=== PATIENT | female | born 1955 | race Caucasian/White ===

== ENCOUNTER 2017-03-31 09:56 | Emergency (ER) | payer BC, OTHER ==
[2017-03-31 10:03] VITALS: BP 146/76
[2017-03-31] MEDS ORDERED: LIDOCAINE 1% 2 ML VIAL SUBQ ONE (10:45)
[2017-03-31] MEDS ORDERED: LIDOCAINE 1% 2 ML VIAL ONE (10:53)
--- NOTE | 2017-03-31 11:22 | ED Physician Documentation ---
History of Present Illness - Stated complaint Stated Complaint: LUMP R GROIN-PX - Chief complaint Chief Complaint: Abd Pain - History obtained from History obtained from: Patient (Pt states that over the past 1-3 days she noticed a bump in her right groin. she has seen her PCM about this who thought that is was a lymph node. No fevers, no urinarx, no surrounding redness. did have some flu like sx recently. Nothing like this before.) Review of Systems Constitutional: reports: Fatigue. denies: Fever, Chills Cardiac: denies: Chest pain / pressure, Palpitations Respiratory: denies: Dyspnea, Cough GI: denies: Abdominal Pain, Nausea, Vomiting, Constipation, Diarrhea : denies: Dysuria, Frequency, Vaginal bleeding Skin: reports: Lesions (right grion bump). 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 - Present Medications Home Medications: Ambulatory Orders Medication Instructions Recorded Confirmed Lisinopril 7.5 mg PO DAILY 03/31/17 03/31/17 - Allergies Allergies/Adverse Reactions: Allergies Allergy/AdvReac Type Severity Reaction Status Date / Time No Known Drug Allergies Allergy Verified 03/31/17 10:02 - Social History Does the pt smoke?: Yes Smoking Status: Current every day smoker PD ED PE NORMAL - Vitals Vital signs reviewed: Yes - General General: Alert and oriented X 3, No acute distress, Well developed/nourished - Cardiac Cardiac: RRR, No murmur - Respiratory Respiratory: No respiratory distress - Abdomen Abdomen: Normal bowel sounds, Soft, Non tender, Non distended - Female Female : Other (Right inguinal area has a 3cm firm round area that is not TTP. ) - Back Back: No CVA TTP - Derm Derm: Normal color, Warm and dry, No rash, Other (lump in right inguinal area) - Neuro Neuro: Alert and oriented X 3, No motor deficit, Normal speech Eye Opening: Spontaneous Motor: Obeys Commands Verbal: Oriented GCS Score: 15 Results - Vitals Vitals: Vital Signs - 24 hr 03/31/17 10:00 Temperature 36.4 C L Heart Rate 88 Respiratory 18 Rate Blood Pressure 146/76 H O2 Saturation 93 Oxygen O2 Source Room air Procedures - Epistaxis Site: Other - Abscess I&D (location) right groin Preparation: Confirmed with ultrasound, Lidocaine 1% Incision: Incised with scalpel, Other (clear drainage) Other: Pt tolerated well - Bedside sono Bedside sono by EMP: Soft tissue US of the lump showing a fluid filled area w/o flow on doppler PD MEDICAL DECISION MAKING - ED course Complexity details: d/w patient ED course: Pt with return of clear fluid. No surrounding redness. C/W a cyst. discussed with pt. no indication for ABX. she was given care instructions and return precautions. Departure - Departure Disposition: 01 Home, Self Care Clinical Impression: Cyst Condition: Good Instructions: Incision Care Follow-Up: Manju Miller PA-C [Primary Care Provider] - Comments: Return to the ER for any new or worsening symptoms.
== END 2017-03-31 11:28 | disposition home or self-care (01) ==
LOC: ED 09:56
DX: L72.8 Other follicular cysts of the skin and subcutaneous tissue (principal); I10 Essential (primary) hypertension; F17.200 Nicotine dependence, unspecified, uncomplicated
CPT/HCPCS: 10060; 99282; 99283